=== PATIENT | female | born 1995 | race Caucasian/White ===

== ENCOUNTER 2019-02-18 18:50 | Emergency (ER) | payer BC ==
[~2019-02-18] VITALS: Ht 160 cm; Wt 56.7 kg
== END 2019-02-18 22:46 | disposition home or self-care (01) ==
LOC: ER 18:50
DX: S00.83XA Contusion of other part of head, initial encounter (principal); R42 Dizziness and giddiness; W18.09XA Striking against other object with subsequent fall, initial encounter; Y93.89 Activity, other specified; Y92.488 Other paved roadways as the place of occurrence of the external cause; Y99.8 Other external cause status